=== PATIENT | female | born 1970 | race Caucasian/White ===

== ENCOUNTER 2016-12-28 15:00 | Emergency (ER) | payer OTHER ==
[~2016-12-28] VITALS: Ht 157.5 cm; Wt 54.4 kg
[2016-12-28 15:00] VITALS: BP_SYST 158
[2016-12-28] MEDS ORDERED: DIPHENHYDRAMINE INJ 50 MG/ML VIAL IVP ONE (15:30)
[2016-12-28] MEDS ORDERED: methylPREDNISolone SOD SUCC/PF 62.5 MG/ML VIAL IVP ONE (15:30)
[2016-12-28 16:00] VITALS: BP_SYST 116
== END 2016-12-28 16:00 | disposition home or self-care (01) ==
LOC: SED 15:00
DX: L50.0 Allergic urticaria (principal); T78.40XA Allergy, unspecified, initial encounter; X58.XXXA Exposure to other specified factors, initial encounter
CPT/HCPCS: 96374; 96375; 99284; J1200; J2930